=== PATIENT | male | born 1955 | race Caucasian/White ===

== ENCOUNTER 2021-08-12 08:20 | Outpatient (CLI) | payer OTHER, SELFPAY | END 2021-08-12 23:59 | disposition short-term general hospital (02) | LOC: RAD 08:26 | PROVIDERS: PCP Orthopaedic Surgery; Referring Provider Otolaryngology; Visit Provider Otolaryngology | DX: Z00.00 Encounter for general adult medical examination without abnormal findings (principal) ==

== ENCOUNTER 2023-02-03 16:26 | Emergency (ER) | payer OTHER, SELFPAY ==
[2023-02-03 16:27] VITALS: BP 142/85; PULSE 78; RESP 15; TEMP 36.4; O2SAT 98; BMI 28.5
[2023-02-03] MEDS: HYDROmorphone 1 MG/ML Syringe IM (20:52)
--- NOTE | 2023-02-03 21:13 | EDS_ITS ---
HPI History of Present Illness Chief Complaint: Back Informant: patient Narrative Narrative: Patient is an 67-year-old male with history of degenerative disc disease and sciatica presenting with worsening back pain. He states he been doing fine over the past few months but last night started having a flareup of his sciatica. States it is in his left lower back and radiates down to his left thigh. Denies any injury. Been taking [id number] ibuprofen and Tylenol with no help. He has previously had an MRI [facility] which showed bulging disc at L4/L5. Patient states she has an appointment on Thursday (next week) to see Dr. Ladd for his back. States he just cannot take the pain. Denies any bowel or bladder dysfunction. Denies any saddle anesthesia. Denies any numbness or weakness of his leg. No other complaints at this time. PFSH PFSH Medical History no medical history Home Medications ibuprofen 600 mg tablet 600 mg PO Q6H PRN pain #20 tabs 02/03/23 [Rx Last Taken Unknown] oxycodone-acetaminophen 5 mg-325 mg tablet (Percocet) 1 tab PO Q6H PRN pain 3 days #12 tabs 02/03/23 [Rx Last Taken Unknown] prednisone 20 mg tablet 40 mg (2 x 20 mg) PO DAILY #10 tabs 02/03/23 [Rx Last Taken Unknown] Allergy/AdvReac Type Severity Reaction Status Date / Time No Known Allergies Allergy Verified 02/03/23 16:29 Family History no significant family his Surgical History no surgical history Social History Smoking Status: Unknown if ever smoked ROS ROS ED Constitutional Constitutional ED: Denies chills or fever(s) Gastrointestinal Gastrointestinal: Denies abdominal pain, nausea or vomiting Musculoskeletal Musculoskeletal: Reports back pain Integumentary Denies rash Neurologic Neurologic: Denies paresthesias or weakness Psychiatric Psychiatric: Denies anxiety EXAM Physical Exam Const Vital Signs: 02/03/23 16:27 02/03/23 21:33 Temperature 97.6 F L Temperature Source Temporal Pulse Rate 78 78 Respiratory Rate 15 18 Blood Pressure 142/85 H Blood Pressure Mean 104 Pulse Ox 98 98 Oxygen Delivery Method Room Air Positive well nourished and well developed General Appearance ED: well developed HEENT Reports moist mucous membranes Eyes PERRL and EOMs intact bilaterally Resp normal respiratory effort Cardio regular rate and regular rhythm GI normal to inspection, nondistended, normoactive bowel sounds Back/Spine Back/Spine Narrative: No midline tenderness specifically of the lumbar spine. Normal strength plantar and dorsiflexion. 2+ PT pulses. Lumbar Spine / Lower Back: straight leg raise positive - left; Negative for straight leg raise positive right Extremity normal to inspection General Extremety ED: Negative for edema General Extremity: Negative for edema Neuro oriented x3 and no sensory deficits noted Motor Exam: strength 5/5 throughout MDM MDM MDM Narrative Medical decision making narrative: Patient evaluated for atraumatic back pain. Back pain highly consistent with sciatica. Given IM Dilaudid for pain control. Will be discharged home on a course of steroids, oxycodone for pain control and NSAIDs. Has an appointment to see spine next week already. Does not have any red flag symptoms consistent with cauda equina syndrome or risk factors. Has no trauma. I do not think imaging is indicated at this time. Patient is improvement of pain with IM Dilaudid. Is prescribed Percocet for short course as well as a course of prednisone and NSAIDs to help with his symp toms. Will follow-up with spine. Given return precautions. Patient comfortable with plan of care. Discharge Plan Triage Chief Complaint: Back ED Provider: Becky Silverman Dx/Rx/DC Orders Clinical Impression: Acute left-sided back pain with sciatica Instructions: ED Sciatica Prescriptions: New prednisone 20 mg tablet 40 mg PO DAILY Qty: 10 0RF oxycodone-acetaminophen [Percocet] 5-325 mg tablet 1 tab PO Q6H PRN (Reason: pain) 3 Days Qty: 12 0RF ibuprofen 600 mg tablet 600 mg PO Q6H PRN (Reason: pain) Qty: 20 0RF Primary Care Provider: Basilia Daniel Referrals: Basilia Daniel MD [Primary Care Provider] - Awais Ladd DO [Med Staff - Active Staff] - Keep Justine appointment Disposition Disposition: Home, Self Care Discharge Date/Time: 02/03/23 21:34
[2023-02-03 21:33] VITALS: PULSE 78; RESP 18; O2SAT 98
== END 2023-02-03 21:34 | disposition home or self-care (01) ==
PROVIDERS: Emergency Provider Emergency Medicine; PCP Family Medicine; Visit Provider Emergency Medicine
DX: M54.30 Sciatica, unspecified side (principal)
CPT/HCPCS: 99283

== ENCOUNTER → 2023-03-06 | Outpatient (CLI) | payer SELFPAY, OTHER ==
--- NOTE | 2023-03-06 17:48 | MRI_ITS ---
INDICATION: pain, lt leg radiculopathy EXAMINATION: MRI - MR Spine Lumbar W/O Contrast TECHNIQUE: Multiplanar and multisequence MR images of the lumbar spine. IV Contrast Dosage and Agent: None. COMPARISON: Lumbar spine radiograph February 09, 2023. FINDINGS: VERTEBRAE: Normal general bone marrow signal with chronic endplate degenerative change lower lumbar spine. No aggressive osseous lesion. No fracture or compression deformity. Preserved lumbar lordosis with degenerative grade 1 anterolisthesis at L5-S1 from facet arthropathy . CORD: Conus medullaris at T12-L1. Imaged portion of the cord is normal in signal. Cauda equina layer dependently. L1/L2: Normal disc height and morphology. Normal spinal canal, lateral recesses and neuroforamina. L2/L3: Normal disc height and morphology. Normal spinal canal, lateral recesses and neuroforamina. L3/L4: Small broad-based posterior disc protrusion with mild bilateral facet arthropathy with mild spinal canal narrowing, mild left lateral recess narrowing with disc approximately the anterior left L4 nerve rootlets and bilateral neural foraminal stenosis. L4/L5: Small broad-based posterior disc bulge and mild bilateral facet arthropathy causing mild spinal canal stenosis and mild bilateral recess narrowing with disc approximating the bilateral L5 nerve rootlets in mild bilateral neural foraminal narrowing.. L5/S1: Uncovering of the posterior superior disc secondary to degenerative grade 1 anterolisthesis. Bilateral facet arthropathy, moderate on the left and mild on the right. Mild spinal canal narrowing and mild right lateral recess narrowing with disc approximating the right S1 nerve rootlets. Mild bilateral neural foraminal stenosis.. SOFT TISSUES: Unremarkable. MRI/Spine Lumbar (Routine) IMPRESSION: Mild multilevel lower lumbar spondylosis with mild lateral recess and neural foraminal narrowing. Disc approximates the lower lumbar and S1 nerve rootlets in the lateral recesses as above. Correlate with distribution of symptoms. Electronically Signed: Bertin Hardy MD at 8:16 EDT Reading Location ID and State: [facility] / [place] Tel , Service support ,
== END | disposition home or self-care (01) ==
PROVIDERS: PCP Family Medicine; Referring Provider Orthopaedic Surgery; Visit Provider Orthopaedic Surgery
DX: M54.17 Radiculopathy, lumbosacral region (principal); M48.061 Spinal stenosis, lumbar region without neurogenic claudication
CPT/HCPCS: 72148